=== PATIENT | male | born 1970 | race Caucasian/White ===

== ENCOUNTER → 2016-07-11 | Outpatient (CLI) | payer OTHER ==
[~2016-07-11] MED LIST: ASPI81TA21 PO; CYCL10TA6 PO; FAMO40TA6 PO; IMD/2 PO; MORP30CA13 PO; PRAV20TA PO
== END | disposition home or self-care (01) ==
LOC: C.RDSM 12:26
PROVIDERS: ATTEND Physical Medicine & Rehabilitation Sports Medicine
DX: M16.11 Unilateral primary osteoarthritis, right hip (principal)

== ENCOUNTER → 2017-02-08 | Outpatient (CLI) | payer OTHER ==
[2017-02-08 13:22] LABS: URIC ACID 5.2 mg/dl (2.6-7.2)
== END | disposition home or self-care (01) ==
LOC: C.LABMFLN 08:55
PROVIDERS: ATTEND Family Medicine
DX: Z00.00 Encounter for general adult medical examination without abnormal findings (principal); E78.00 Pure hypercholesterolemia, unspecified; F11.20 Opioid dependence, uncomplicated; M1A.9XX0 Chronic gout, unspecified, without tophus (tophi)

== ENCOUNTER → 2017-08-07 | Outpatient (CLI) | payer OTHER | END | disposition home or self-care (01) | LOC: C.RDSM 08:54 | PROVIDERS: ATTEND Physical Medicine & Rehabilitation Sports Medicine | DX: M16.11 Unilateral primary osteoarthritis, right hip (principal) ==